=== PATIENT | female | born 1950 | race Caucasian/White ===

== ENCOUNTER 2017-02-06 17:35 | Inpatient (IN) | payer MEDICARE, OTHER ==
[~2017-02-06] VITALS: Ht 175.3 cm; Wt 99.8 kg
--- NOTE | ~2017-02-06 | HP ---
History And Physical [id number] [place]. [address] NAME: JOSE ELIAS ACEVEDO : 50 STATUS : ADM IN [facility]#: [id number] AGE: 66 ADM/REG DATE : 02/06/17 MR#: [id number] REPORT SERV DATE: 02/07/17 DICTATED BY: KANDICE TRUONG DATE: 02/06/17 REPORT STATUS : Draft TRANSCRIBED BY: MODL DATE: 02/06/17 DATE OF ADMISSION: 02/06/2017 CHIEF COMPLAINT: Abdominal pain. HISTORY: Ms. Acevedo is a 66-year-old female who is approximately 12 days status post laparoscopic parastomal hernia repair, who presents complaining of ongoing nausea and abdominal pain with weakness, which never really got completely better since her surgery. The discomfort is diffuse and mild. ALLERGIES: SHE HAS NO KNOWN MEDICAL ALLERGIES. MEDICATIONS: Include multiple vitamins and dietary supplements in addition to gabapentin, folate, lisinopril, methotrexate, omega-3 fatty acids, Zofran, Protonix, Phenergan, Ultram, and Coumadin, which she is on because of a history of DVT and PE with an INR of 3.9 earlier today. PAST MEDICAL HISTORY: Includes hypertension, history of DVT and PE, history of colitis, and history of parastomal hernia repair. PREVIOUS SURGERIES: Include a total colectomy with ileostomy for colitis. FAMILY HISTORY: Significant for lung cancer. SOCIAL HISTORY: Negative for tobacco or ethanol abuse. REVIEW OF SYSTEMS: Negative for current chest pain or shortness of breath. PHYSICAL EXAMINATION: GENERAL: She is alert and not in any distress. HEENT: She has dry mucous membranes and no scleral icterus. There is no JVD, thyromegaly, or cervical adenopathy. There is no use of accessory muscles of breathing. CHEST: Clear. HEART: Regular rhythm and rate without murmurs. ABDOMEN: Soft and minimally distended with a soft parastomal hernia which is minimally tender and findings are not consistent with strangulation. EXTREMITIES: Reveal no cyanosis, clubbing, or edema. VITAL SIGNS: Blood pressure is 152/75, temperature 98.4, and respiratory rate 20. ADDITIONAL DATA: Includes a CT scan, which I independently reviewed and also I read the report and findings were consistent with dilated proximal small bowel, though not a discrete transition zone. There is also an ileostomy and a large parastomal hernia with non- incarcerated small bowel segments and some small band of fluid attenuation along the previous tract of hemodialysis catheter in the left lower quadrant with an IVC filter, and she does have changes consistent with hysterectomy. Her small amount of air in the bladder History And Physical [address] [id number] NAME: JOSE ELIAS ACEVEDO : 50 STATUS : ADM IN PAT#: [id number] AGE: 66 ADM/REG DATE : 02/06/17 MR#: [id number] REPORT SERV DATE: 02/07/17 DICTATED BY: KANDICE TRUONG DATE: 02/06/17 REPORT STATUS : Draft TRANSCRIBED BY: MODL DATE: 02/06/17 consistent with likely previous Boyd placement and a recent surgery. White blood cell count is 13.9, hemoglobin 12.4. Creatinine 1.0, potassium 3.9, and lactate is 1.2. IMPRESSION: Ileus versus partial small bowel obstruction with recurrent parastomal hernia, which does not seem to be an area of obstruction. Recommended IV hydration as she is dehydrated and possible need for nasogastric tube or even reexploration if she seems to have ongoing bowel obstruction versus ileus. I discussed this with her and she expressed understanding. MAIA/MODL Gail Truong M.D. / [id number] CC: Shawnee Keane M.D.
[~2017-02-06 17:35] MED LIST: ASAB PO; ASACOL PO; ATEN25 PO; ATEN50 PO; B12100T PO; BENTYL20 PO; BIOTIN5 MG OR; CELEBREX1 PO; COUMADIN3 MG PO; COUMADIN4 MG PO; COUMADIN6 MG PO; FOLIC PO; HUMIRA SC; HYDROCHLOROT12.5 MG PO; HYDROCHLOROT25 MG PO; LEXAPRO10 PO; MOBIC15 MG PO; MOTRIN IB200 MG PO; MULTIVITAMI1 PO; P20 PO; PEPCID40 MG OR; PR12.5 PO; PRILO PO; PRIN20 PO; TAPAZOLE5 MG OR; TREXALL10 MG PO; TREXALL5 MG; ULTRAM50 PO; V2 PO; VALCYTE PO; VANC125UDL PO; VANCOCIN HCL125 MG PO; VITAMIN B-121000 MC1 SL; ZESTRIL20 MG PO; ZYRTEC ALLGY10 MG PO
[2017-02-06 19:56] LABS: ASCORBIC ACID (UR NOT ORDER) NEG (NEG); BILIRUBIN, URINE NEGATIVE (NEG); ER URINALYSIS TAT 0 Hrs 07 Mins; KETONE, URINE NEGATIVE (NEG); LEUKOCYTE ESTERASE(NOT OR NEG (NEG); NITRITE (URINE) NEG (NEG); WBC (NOT ORDERED) (RFLEX) 2 (0-5)
[2017-02-06] MEDS ORDERED: ZOFRANODT8 PO (20:01)
[2017-02-06] MEDS ORDERED: PROTONIX PO (20:02)
[2017-02-06] MEDS ORDERED: PR12.5 PO (20:02)
[2017-02-06] MEDS ORDERED: MTX50 SC (20:05)
[2017-02-06] MEDS ORDERED: FOLIC PO (20:06)
[2017-02-06] MEDS ORDERED: PRIN20 PO (20:06)
[2017-02-06] MEDS ORDERED: ULTRAM50 PO (20:06)
[2017-02-06] MEDS ORDERED: NEUR300 PO (20:07)
[2017-02-06] MEDS ORDERED: COUMADIN3 MG PO (20:07)
[2017-02-06] MEDS ORDERED: MAGNESIUM OTC PO (20:08)
[2017-02-06] MEDS ORDERED: TURMERIC OTC PO (20:09)
[2017-02-06] MEDS ORDERED: FISH OIL OTC PO (20:09)
[2017-02-06] MEDS ORDERED: PROBIOTIC OTC PO (20:11)
[2017-02-06] MEDS ORDERED: VITAMIN B PO (20:11)
[2017-02-06] MEDS ORDERED: PROMEGA PO (20:12)
[2017-02-06] MEDS ORDERED: VITAMIN D31000 UNIT PO (20:12)
[2017-02-06] MEDS ORDERED: CYANO1000T PO (20:12)
[2017-02-06] MEDS ORDERED: FLEXI JOIN1 PO (20:13)
[2017-02-06] MEDS ORDERED: BL FLAX SEED1000 MG PO (20:13)
[2017-02-06 20:22] LABS: BASOPHILS 0.2 %; BASOPHILS ABSOLUTE 0.03 10/3/uL (0.0-0.16); EOSINOPHILS 1.9 %; EOSINOPHILS ABSOLUTE 0.27 10/3/uL (0.0-0.53); ER CBC TAT 0 Hrs 07 Mins; HEMATOCRIT 37.7 % (36.0-48.0); HEMOGLOBIN 12.4 g/dL (12.0-16.0); IMMATURE GRANULOCYTES 1.1 %; IMMATURE GRANULOCYTES ABSOLUTE 0.15 10/3/uL (0.0-0.11); LYMPHOCYTES 10.9 %; LYMPHOCYTES ABSOLUTE 1.52 10/3/uL (0.67-4.30); MANUAL DIFF NO %; MEAN CORPUS HGB CONC 32.9 g/dL (32.0-36.0); MEAN CORPUSCULAR HEMOGLOB 32.5 pg (26.0-34.0); MEAN PLATELET VOLUME 9.4 fL (9.2-13.0); MONOCYTES 7.1 %; MONOCYTES ABSOLUTE 0.99 10/3/uL (0.21-1.20); NEUTROPHILS 78.8 %; NEUTROPHILS ABSOLUTE 10.96 10/3/uL (2.02-8.40); PLATELET COUNT 414 10/3/uL (150-400); RBC DISTRIBUTION WIDTH 14.8 % (12.0-16.0); RED CELL COUNT 3.81 10/6/uL (4.0-5.6); WHITE BLOOD CELLS 13.9 10/3/uL (4.5-10.5)
[2017-02-06 20:39] LABS: A/G RATIO 0.7 (0.7-1.9); ALKALINE PHOSPHATASE 77 U/L (45-117); CALCIUM, SERUM 8.9 MG/DL (8.5-10.4); CHLORIDE, SERUM 103 MMOL/L (96-112); CREATININE 1.01 MG/DL (0.55-1.02); GFR AFRICAN AMERICAN 67 ML/MIN (>=60); GFR NON AFRICAN AMERICAN 58 ML/MIN (>=60); GLOBULIN 4.2 G/DL (2.5-4.1); GLUCOSE, SERUM 90 MG/DL (60-99); POTASSIUM, SERUM 3.9 MMOL/L (3.5-5.3); SGOT(AST) 29 U/L (5-40); SGPT(ALT) 71 U/L (5-65); SODIUM, SERUM 139 MMOL/L (135-148); TOTAL BILIRUBIN 0.7 MG/DL (0-1.2); TOTAL PROTEIN 7.2 G/DL (6.0-8.5)
[2017-02-06 20:40] LABS: BUN (BLOOD UREA NITROGEN) 8 MG/DL (6-23); CO2 (CARBON DIOXIDE) 30 MMOL/L (24-34)
[2017-02-06 20:43] LABS: LACTATE 1.2 MMOL/L (0.3-2.4)
[2017-02-07 06:23] LABS: BASOPHILS 0.4 %; BASOPHILS ABSOLUTE 0.05 10/3/uL (0.0-0.16); EOSINOPHILS ABSOLUTE 0.35 10/3/uL (0.0-0.53); HEMOGLOBIN 11.3 g/dL (12.0-16.0); IMMATURE GRANULOCYTES 1.1 %; IMMATURE GRANULOCYTES ABSOLUTE 0.13 10/3/uL (0.0-0.11); LYMPHOCYTES 10.8 %; LYMPHOCYTES ABSOLUTE 1.25 10/3/uL (0.67-4.30); MEAN CORPUS HGB CONC 33.4 g/dL (32.0-36.0); MEAN CORPUSCULAR HEMOGLOB 32.8 pg (26.0-34.0); MEAN PLATELET VOLUME 9.3 fL (9.2-13.0); MONOCYTES 8.8 %; MONOCYTES ABSOLUTE 1.02 10/3/uL (0.21-1.20); NEUTROPHILS 75.9 %; NEUTROPHILS ABSOLUTE 8.77 10/3/uL (2.02-8.40); PLATELET COUNT 366 10/3/uL (150-400); RBC DISTRIBUTION WIDTH 15.1 % (12.0-16.0); RED CELL COUNT 3.45 10/6/uL (4.0-5.6); WHITE BLOOD CELLS 11.6 10/3/uL (4.5-10.5)
[2017-02-07 06:24] LABS: INTERNATIONAL NORMAL RATI 2.7 UNITS (-); PROTIME (NOT ORD) 28.7 SEC (12.0-14.5)
[2017-02-07 06:25] LABS: HEMATOCRIT 33.8 % (36.0-48.0); MANUAL DIFF NO %
[2017-02-07 06:31] LABS: BUN (BLOOD UREA NITROGEN) 6 MG/DL (6-23); CALCIUM, SERUM 8.3 MG/DL (8.5-10.4); CHLORIDE, SERUM 105 MMOL/L (96-112); CO2 (CARBON DIOXIDE) 27 MMOL/L (24-34); CREATININE 0.93 MG/DL (0.55-1.02); GFR AFRICAN AMERICAN 74 ML/MIN (>=60); GFR NON AFRICAN AMERICAN 64 ML/MIN (>=60); POTASSIUM, SERUM 3.6 MMOL/L (3.5-5.3); SODIUM, SERUM 139 MMOL/L (135-148)
[2017-02-07 06:32] LABS: GLUCOSE, SERUM 109 MG/DL (60-99)
[2017-02-08] MEDS ORDERED: MIRALAX POWDER1 PKT PO (13:57)
== END 2017-02-08 15:13 | disposition home or self-care (01) | DRG 390 ==
LOC: ER 17:35 → 5SO 22:27
PROVIDERS: Colon & Rectal Surgery; Hospitalist
DX: K56.7 Ileus, unspecified (principal); I10 Essential (primary) hypertension; Z93.2 Ileostomy status; Z90.49 Acquired absence of other specified parts of digestive tract; Z86.718 Personal history of other venous thrombosis and embolism; Z86.711 Personal history of pulmonary embolism
CPT/HCPCS: 74177; 80048; 80053; 81001; 83605; 83690; 83735; 85025; 85610; 96374; 99285; A9270-GY; J2405; Q9967